=== PATIENT | female | born 1970 | race Caucasian/White ===

== ENCOUNTER 2020-02-15 11:26 | Emergency (ER) | payer OTHER ==
[2020-02-15] MEDS ORDERED: Tetracaine HCl/PF 0.5% 4 ML Bottle EYEBOTH ONE (11:28)
--- NOTE | 2020-02-15 12:33 | EDM.PDOC ---
ED HPI GENERAL MEDICAL PROBLEM - General Chief Complaint: Eye Problems Stated Complaint: L EYE ISSUES FROM CLEANING SOLUTION Time Seen by Provider: 02/15/20 12:20 Source of Information: Reports: Patient History Limitations: Reports: No Limitations - History of Present Illness INITIAL COMMENTS - FREE TEXT/NARRATIVE: Oscar is a 50 year old female, presents to the ED today with c/o left eye irritation and pain. Symptoms started yesterday after she accidentally put in her contact after putting contact cleaning solution on it instead of saline. Patient reports pain was worse last evening but better today after wearing her glasses and not using make up. Patient denies any visual changes. Patient denies any fever. Onset: Gradual Duration: Day(s): (2) ED ROS GENERAL - Review of Systems Review Of Systems: Comprehensive ROS is negative, except as noted in HPI. ED EXAM GENERAL W FULL EYE - Physical Exam Exam: See Below Exam Limited By: No Limitations General Appearance: Alert, WD/WN, No Apparent Distress Eye Exam: Bilateral Eye: EOMI, PERRL Eyelids: Bilateral: Normal Appearance Conjunctiva & Sclera: Left: Injected Pupils: Normal Accommodation Pupillary Size: Bilateral: 3 mm Ears: Normal External Exam Nose: Normal Inspection Throat/Mouth: Normal Oropharynx Head: Atraumatic Neck: Normal Inspection, Supple, Non-Tender Respiratory/Chest: No Respiratory Distress Cardiovascular: Normal Peripheral Pulses GI/Abdominal: Normal Bowel Sounds, Soft, Non-Tender Back Exam: Normal Inspection Extremities: Normal Inspection Neurological: Alert, Oriented, CN II-XII Intact Psychiatric: Normal Affect, Normal Mood Skin Exam: Warm, Dry, Intact ED EYE w/ Add Procedure - Eye Procedure Alcaine Drops Administered: Yes Course - Vital Signs Last Recorded V/S: Last Vital Signs Temp 36.8 C 02/15/20 12:13 Pulse 89 02/15/20 12:13 Resp 16 02/15/20 12:13 BP 153/75 H 02/15/20 12:13 Pulse Ox 100 02/15/20 12:13 Left eye irritation. No foreign body. Fluorescein stain reveals general irritation, no corneal abrasion. No hyphema or globe injury. Patient will be discharged home on antibiotic eye drops for infection prophylaxis. Patient instructed to avoid wearing contact or eye make until this clears. Visual Acuity was normal and equal bilaterally. 20/30 right and left. Reasons to return to the ED discussed, patient agreeable and discharged in stable condition. - Orders/Labs/Meds Meds: Medications Discontinued Medications Generic Name Dose Route Start Last Admin Trade Name Gerber PRN Reason Stop Dose Admin Tetracaine HCl 0 ml 02/15/20 11:28 Tetracaine 0.5% Steri-Unit Adriana EYEBOTH 02/15/20 11:29 ASDIRECTED ONE Departure - Departure Time of Disposition: 13:00 Disposition: Home, Self-Care 01 Condition: Good Clinical Impression: Corneal inflammation, left - Discharge Information Instructions: How to Use Eye Drops and Eye Ointments Referrals: PCP,None [Primary Care Provider] - Additional Instructions: Use antibiotic eye drops as prescribed. Follow up with eye doctor if symptoms worsen. Ibuprofen/Tylenol per bottle instructions as needed. Ice packs may be helpful as well. Sepsis Event Note (ED) - Focused Exam Vital Signs: Vital Signs Temp Pulse Resp BP Pulse Ox 02/15/20 12:13 36.8 C 89 16 153/75 H 100
== END 2020-02-15 12:56 | disposition home or self-care (01) ==
LOC: JP.ED 11:26
DX: H16.9 Unspecified keratitis (principal)
CPT/HCPCS: 99283